=== PATIENT | female | born 1935 | race Caucasian/White ===

== ENCOUNTER 2022-05-24 09:31 | Day surgery (SDC) | payer BC, MEDICARE ==
[2022-05-23 09:06] VITALS: BMI 26.9
--- NOTE | 2022-05-24 08:51 | P.GSHP ---
History of Present Illness H&P Date: 05/24/22 CHIEF COMPLAINT: GI bleed with anemia HISTORY OF PRESENT ILLNESS: The patient is a 87-year-old female who presents with GI bleed with anemia. Upper and lower endoscopy were offered for further evaluation and management. PAST MEDICAL HISTORY: Please see list. PAST SURGICAL HISTORY: Please see list. MEDICATIONS: Please see list. ALLERGIES: Please see list. SOCIAL HISTORY: No illicit drug use FAMILY HISTORY: No reports of Crohn disease or ulcerative colitis. REVIEW OF ORGAN SYSTEMS: CONSTITUTIONAL: No reports of fevers or chills. PHYSICAL EXAM: VITAL SIGNS: Stable GENERAL: Well-developed pleasant in no acute distress. HEENT: No scleral icterus. Extraocular movements grossly intact. Moist buccal mucosa. NECK: Supple without lymphadenopathy. CHEST: Unlabored respirations. Equal bilateral excursions. CARDIOVASCULAR: Regular rate and rhythm. Distal 2+ pulses. ABDOMEN: Soft, nondistended. MUSCULOSKELETAL: No clubbing, cyanosis, or edema. ASSESSMENT: 1. Gastrointestinal bleed 2. Anemia PLAN: 1. Recommend proceeding with an upper and lower endoscopy Past Medical History Past Medical History: Hyperlipidemia, Hypertension, Thyroid Disorder Additional Past Medical History / Comment(s): + COLOGARD IN FEBRUARY 2022 History of Any Multi-Drug Resistant Organisms: None Reported Past Surgical History: Cholecystectomy Additional Past Surgical History / Comment(s): HEMORRHOIDECTOMY WITH FISTULA REPAIR. COLONOSCOPY Past Anesthesia/Blood Transfusion Reactions: No Reported Reaction Smoking Status: Never smoker - Past Family History Sister(s) Family Medical History: Cancer Additional Family Medical History / Comment(s): THYROID Medications and Allergies Home Medications Medication Instructions Recorded Confirmed Type Aspirin 162.5 mg PO DAILY 05/23/22 05/23/22 History Levothyroxine Sodium [Synthroid] 100 mcg PO DAILY 05/23/22 05/23/22 History Losartan Potassium 100 mg PO DAILY 05/23/22 05/23/22 History Pravastatin Sodium [Pravachol] 20 mg PO HS 05/23/22 05/23/22 History rOPINIRole HCL 0.25 mg PO HS 05/23/22 05/23/22 History Allergies Allergy/AdvReac Type Severity Reaction Status Date / Time No Known Allergies Allergy Verified 05/23/22 09:01
[~2022-05-24 09:31] MED LIST: LIDOCAINE 1% (10MG/ML) FOR IV START INTRADERMA PRN
[2022-05-24] MEDS: LACTATED RINGERS 1,000 ML IV SCH ×2 (09:44→10:00)
[2022-05-24 09:51] VITALS: RESP 16; TEMP 97.1
[2022-05-24] MEDS ORDERED: PROPOFOL 10 MG/ML 20 ML VIAL IV ONE (10:04)
[2022-05-24] MEDS ORDERED: LIDOCAINE 2% INJ 20 MG/ML (2 ML VIAL) ONE (10:04)
--- NOTE | 2022-05-24 10:16 | P.PCN ---
Date of Procedure: 05/24/22 Description of Procedure: PREOPERATIVE DIAGNOSIS: Gastroesophageal reflux disease. Anemia Gastrointestinal bleed POSTOPERATIVE DIAGNOSIS: Gastric ulcer with bleeding, gastric fundus Gastritis with bleeding Diaphragmatic hiatal hernia OPERATION: Esophagogastroduodenoscopy with biopsies along antrum and duodenum SURGEON: Christina Hayes MD ANESTHESIA: MAC. INDICATIONS: The patient is a 87-year-old female who presents with gastrointestinal bleed and anemia. Benefits and risks of the procedure were described. Informed consent was obtained. DESCRIPTION: The patient was brought into the endoscopy suite and laid in the left lateral decubitus position. An Olympus gastroscope was passed along the posterior oropharynx down to the distal esophagus where the squamocolumnar junction was encountered at 40 cm from the incisors. The stomach was entered and no bile reflux was found. Additional findings are listed below. Biopsies with cold forceps were obtained of the antrum. The first through third portion of the duodenum was examined. Retroflexion of the scope confirmed Hill grade 4 lower esophageal valve. The squamocolumnar junction demonstrated LA grade B erosive esophagitis. The stomach was desufflated. The patient tolerated the procedure well. FINDINGS: Squamocolumnar junction 36 cm from the incisors. Diaphragmatic hiatus at 40 cm. Hiatal hernia, 4 cm Hill grade 4 lower esophageal valve. LA grade B erosive esophagitis. Cold biopsies obtained of duodenum Chronic gastritis with recent bleed Superficial gastric ulcer, 3 mm the gastric fundus with recent bleed RECOMMENDATIONS: Upper endoscopy as needed.
[2022-05-24] MEDS ORDERED: SODIUM CHLORIDE 0.9% 500 ML 500 ML IV ONE (10:19)
--- NOTE | 2022-05-24 10:47 | P.PCN ---
Date of Procedure: 05/24/22 Description of Procedure: PREOPERATIVE DIAGNOSIS: Gastrointestinal bleed POSTOPERATIVE DIAGNOSIS: Tubular adenoma ascending colon Sigmoid diverticulosis OPERATION: Colonoscopy to the ileocecal valve and appendiceal orifice, cecum Colonoscopy with cold forceps biopsy SURGEON: Crhistina Hayes MD. ANESTHESIA: MAC. INDICATIONS: The patient is an 87-year-old female who presents with GI bleed. Benefits and risks were described and informed consent was obtained. DESCRIPTION OF PROCEDURE: The patient had undergone Sutab prep. The patient had been brought into the operating room and laid in the left lateral decubitus position. After adequate intravenous sedation, the rectum was examined with 2% lidocaine jelly. External hemorrhoids were encountered. The rectal tone was within normal limits. No lesions were palpated in the rectal vault. An Olympus colonoscope was advanced until the cecum, ileocecal valve and appendiceal orifice were clearly viewed. The prep was good. Sigmoid diverticulosis was encountered. Colonic polyps were found and removed. No evidence of focal colitis was found. Retroflexion of the scope demonstrated grade 2 internal hemorrhoids without active bleeding or inflammation. The colon was desufflated. The patient had tolerated the procedure well. Withdrawal time was over 6 minutes. FINDINGS: Aronchick preparation quality scale 2 (1-5) Internal hemorrhoids, grade 2 External hemorrhoids, grade 2 No arteriovenous malformations. Sigmoid diverticulosis Removal of 1 polyp: - Cold forceps biopsy at ascending colon, 5 mm polyp, ascending colon No focal colitis. RECOMMENDATIONS: Repeat colonoscopy in 3 years, 2024 Plan - Discharge Summary Discharge Rx Participant: No New Discharge Prescriptions: New Pantoprazole [Protonix] 40 mg PO DAILY #14 tab Continue Aspirin 162.5 mg PO DAILY Pravastatin Sodium [Pravachol] 20 mg PO HS Levothyroxine Sodium [Synthroid] 100 mcg PO DAILY rOPINIRole HCL 0.25 mg PO HS Losartan Potassium 100 mg PO DAILY Discharge Medication List Aspirin 162.5 mg PO DAILY 05/23/22 [History] Levothyroxine Sodium [Synthroid] 100 mcg PO DAILY 05/23/22 [History] Losartan Potassium 100 mg PO DAILY 05/23/22 [History] Pravastatin Sodium [Pravachol] 20 mg PO HS 05/23/22 [History] rOPINIRole HCL 0.25 mg PO HS 05/23/22 [History] Pantoprazole [Protonix] 40 mg PO DAILY #14 tab 05/24/22 [Rx] Follow up Appointment(s)/Referral(s): Christina Hayes MD [STAFF PHYSICIAN] - 06/06/22 Patient Instructions/Handouts: Diverticulosis (DC), Colorectal Polyps (GEN), Diverticulosis Diet (GEN) Activity/Diet/Wound Care/Special Instructions: Repeat colonoscopy 3 years, 2024 Discharge Disposition: HOME SELF-CARE
[2022-05-24 10:54] VITALS: BP 124/74; PULSE 59
== END 2022-05-24 11:37 | disposition home or self-care (01) ==
LOC: ORWHC2ENDO 09:31
PROVIDERS: ATTEND Surgery Plastic and Reconstructive Surgery
DX: D12.2 Benign neoplasm of ascending colon (principal); D50.0 Iron deficiency anemia secondary to blood loss (chronic); K57.31 Diverticulosis of large intestine without perforation or abscess with bleeding; K64.4 Residual hemorrhoidal skin tags; K64.1 Second degree hemorrhoids; K44.9 Diaphragmatic hernia without obstruction or gangrene; K22.11 Ulcer of esophagus with bleeding; I10 Essential (primary) hypertension; K92.2 Gastrointestinal hemorrhage, unspecified; E78.5 Hyperlipidemia, unspecified; E07.9 Disorder of thyroid, unspecified; Z90.49 Acquired absence of other specified parts of digestive tract; Z98.890 Other specified postprocedural states; Z80.8 Family history of malignant neoplasm of other organs or systems; Z79.82 Long term (current) use of aspirin; Z79.890 Hormone replacement therapy; Z79.899 Other long term (current) drug therapy
CPT/HCPCS: 88305; 45380; 43239; J2704; J2001